=== PATIENT | male | born 1980 | race Caucasian/White ===

== ENCOUNTER 2021-03-22 06:47 | Emergency (ER) | payer SELFPAY ==
[2021-03-22] MEDS ORDERED: Ketorolac 30 MG/ML SDV IVPUSH ONE (07:32)
[2021-03-22] MEDS ORDERED: diphenhydrAMINE 50 MG/ML SDV IVPUSH ONE (07:32)
[2021-03-22] MEDS ORDERED: Prochlorperazine 10 MG/2 ML SDV IVPUSH ONE (07:32)
[2021-03-22] MEDS ORDERED: Sodium Chloride 0.9% 10 ML Syringe FLUSH PRN (07:32)
--- NOTE | 2021-03-22 07:38 | EDM.PDOC ---
ED HPI GENERAL MEDICAL PROBLEM - General Chief Complaint: Headache Stated Complaint: MIGRAINE Time Seen by Provider: 03/22/21 07:27 Source of Information: Reports: Patient History Limitations: Reports: No Limitations - History of Present Illness INITIAL COMMENTS - FREE TEXT/NARRATIVE: The patient presents for a migraine. The patient said this started about 2am. He tried taking excedrin and it helped a little but he still has a bad headache. He has a history of migraines and he is supposed to use imitrex but he cannot afford it. He has nausea and vomiting. He has no numbness or weakness. He has no fever, chills, cough, congestion, runny nose, chest pain, shortness of breath or abdominal pain. Onset: Gradual Duration: Hour(s): Location: Reports: Head Quality: Reports: Ache Severity: Severe Improves with: Reports: None Worsens with: Reports: None Associated Symptoms: Reports: Headaches, Nausea/Vomiting. Denies: Chest Pain, Cough, Fever/Chills, Shortness of Breath Treatments [employer]: Reports: Aspirin Headache Pain Score (Numeric/FACES): 8 - Related Data Allergies Allergy/AdvReac Type Severity Reaction Status Date / Time ethinyl estradiol Allergy Itching Verified 03/22/21 07:17 [From [facility]ale (91)] levonorgestrel Allergy Itching Verified 03/22/21 07:17 [From [facility]ale (91)] Penicillins Allergy Cannot Verified 03/22/21 07:17 Remember Home Meds: Home Meds Ibuprofen 600 mg PO TID #30 tablet 06/24/14 [Rx] Aspirin/Acetaminophen/Caffeine [Excedrin Migraine Caplet] 1 each PO ASDIRECTED PRN 03/22/21 [History] Past Medical History HEENT History: Reports: None Cardiovascular History: Reports: None Respiratory History: Reports: None Gastrointestinal History: Reports: None Genitourinary History: Reports: None Musculoskeletal History: Reports: Back Pain, Chronic Neurological History: Reports: Migraines Psychiatric History: Reports: Addiction Endocrine/Metabolic History: Reports: None Hematologic History: Reports: None Immunologic History: Reports: None Oncologic (Cancer) History: Reports: None Dermatologic History: Reports: None - Infectious Disease History Infectious Disease History: Reports: Chicken Pox - Past Surgical History HEENT Surgical History: Reports: None Musculoskeletal Surgical History: Reports: None Social & Family History - Family History Family Medical History: No Pertinent Family History - Tobacco Use Tobacco Use Status *Q: Current Every Day Tobacco User Years of Tobacco use: 20 Packs/Tins Daily: 1 - Caffeine Use Caffeine Use: Reports: Coffee, Other Caffeine Use Comment: excedrine with caffince - Recreational Drug Use Recreational Drug Use: Yes Drug Use in Last 12 Months: No Recreational Drug Type: Reports: Methamphetamine, Opium Recreational Drug Use Frequency: Not Used In Over 1 Year ED ROS GENERAL - Review of Systems Review Of Systems: See Below Constitutional: Reports: No Symptoms HEENT: Reports: No Symptoms Respiratory: Reports: No Symptoms Cardiovascular: Reports: No Symptoms Endocrine: Reports: No Symptoms GI/Abdominal: Reports: Nausea, Vomiting. Denies: Abdominal Pain : Reports: No Symptoms Musculoskeletal: Reports: No Symptoms Skin: Reports: No Symptoms Neurological: Reports: Headache - Physical Exam Exam: See Below Exam Limited By: No Limitations General Appearance: Alert, No Apparent Distress Ears: Normal External Exam Nose: Normal Inspection Head Exam: Atraumatic, Normocephalic Neck: Normal Inspection Respiratory/Chest: No Respiratory Distress, Lungs Clear, Normal Breath Sounds Cardiovascular: Regular Rate, Rhythm, No Edema, No Murmur GI/Abdominal: Soft, Non-Tender, No Organomegaly, No Mass Neuro Exam (Abbreviated): Alert, Oriented, No Motor/Sensory Deficits Course - Vital Signs Last Recorded V/S: Last Vital Signs Temp 97.6 F 03/22/21 07:22 Pulse 80 03/22/21 07:22 Resp 18 03/22/21 07:22 BP 129/93 H 03/22/21 07:22 Pulse Ox 100 03/22/21 07:22 - Orders/Labs/Meds Orders: Active Orders 24 hr Category Date Time Status Peripheral IV Care [RC] . DIRECTED Care 03/22/21 07:32 Active Sodium Chloride 0.9% [Saline Flush] Med 03/22/21 07:32 Active 10 ml FLUSH ASDIRECTED PRN Peripheral IV Insertion Adult [OM.PC] Routine Oth 03/22/21 07:32 Ordered Medication Orders Sodium Chloride (Sodium Chloride 0.9% 10 Ml Syringe) 10 ml FLUSH ASDIRECTED PRN PRN Reason: Keep Vein Open Last Admin: 03/22/21 08:05 Dose: 10 ml Documented by: JESSIE Meds: Medications Generic Name Dose Route Start Last Admin Trade Name Freq PRN Reason Stop Dose Admin Sodium Chloride 10 ml 03/22/21 07:32 03/22/21 08:05 Sodium Chloride 0.9% 10 Ml Syringe FLUSH 10 ml ASDIRECTED PRN Administration Keep Vein Open Discontinued Medications Generic Name Dose Route Start Last Admin Trade Name Juno PRN Reason Stop Dose Admin Diphenhydramine HCl 50 mg 03/22/21 07:32 03/22/21 08:05 Diphenhydramine 50 Mg/Ml Sdv IVPUSH 03/22/21 07:33 50 mg ONETIME ONE Administration Ketorolac Tromethamine 30 mg 03/22/21 07:32 03/22/21 08:05 Ketorolac 30 Mg/Ml Sdv IVPUSH 03/22/21 07:33 30 mg ONETIME ONE Administration Prochlorperazine Edisylate 10 mg 03/22/21 07:32 03/22/21 08:05 Prochlorperazine 10 Mg/2 Ml Sdv IVPUSH 03/22/21 07:33 10 mg ONETIME ONE Administration - Re-Assessments/Exams Free Text/Narrative Re-Assessment/Exam: 03/22/21 07:37 I ordered an IV saline lock, compazine 10mg IV, benadryl 50mg IV and toradol 30mg IV. 03/22/21 08:57 He feels better. I will discharge him home. Departure - Departure Time of Disposition: 09:00 Disposition: Home, Self-Care 01 Condition: Good Clinical Impression: Migraine - Discharge Information *PRESCRIPTION DRUG MONITORING PROGRAM REVIEWED*: Not Applicable *COPY OF PRESCRIPTION DRUG MONITORING REPORT IN PATIENT YANET: Not Applicable Referrals: PCP,None [Primary Care Provider] - Forms: ED Department Discharge Additional Instructions: Go home and rest. Drink plenty of fluids. Take excedrin as needed. Please return if you are worse. Sepsis Event Note (ED) - Evaluation Sepsis Screening Result: No Definite Risk - Focused Exam Vital Signs: Vital Signs Temp Pulse Resp BP Pulse Ox 03/22/21 07:22 97.6 F 80 18 129/93 H 100 - My Orders Last 24 Hours: My Active Orders 03/22/21 07:32 Peripheral IV Care [RC] . DIRECTED Sodium Chloride 0.9% [Saline Flush] 10 ml FLUSH ASDIRECTED PRN Peripheral IV Insertion Adult [OM.PC] Routine - Assessment/Plan Last 24 Hours: My Active Orders 03/22/21 07:32 Peripheral IV Care [RC] . DIRECTED Sodium Chloride 0.9% [Saline Flush] 10 ml FLUSH ASDIRECTED PRN Peripheral IV Insertion Adult [OM.PC] Routine
== END 2021-03-22 09:05 | disposition home or self-care (01) ==
LOC: JD.ED 06:47
DX: G43.909 Migraine, unspecified, not intractable, without status migrainosus (principal); Z88.0 Allergy status to penicillin; Z88.8 Allergy status to other drugs, medicaments and biological substances; Z72.0 Tobacco use
CPT/HCPCS: 96374; 96375; 99283; J0780; J1200; J1885